=== PATIENT | female | born 1995 | race Caucasian/White ===

== ENCOUNTER → 2019-08-24 | Outpatient (REF) | payer OTHER ==
[2019-08-24 11:52] LABS: ESTRADIOL 43.1 PG/ML; FOLLICLE STIMULATING HORMONE 6.2 mIU/mL; FREE T4 0.98 NG/DL (0.76-1.46); LUTEINIZING HORMONE 2.3 mIU/mL; PROGESTERONE 0.8 NG/ML; PROLACTIN 17.8 NG/ML; THYROID STIMULATING HORMONE 2.63 uIU/ML (0.358-3.740)
== END ==
LOC: M PLALAB 09:39
PROVIDERS: ATTEND Obstetrics & Gynecology
DX: N92.6 Irregular menstruation, unspecified (principal)

== ENCOUNTER → 2019-09-12 | Outpatient (REF) | payer OTHER | LOC: M PLALAB 10:42 | PROVIDERS: ATTEND Obstetrics & Gynecology | DX: N92.6 Irregular menstruation, unspecified (principal) ==